=== PATIENT | male | born 1955 | race Caucasian/White ===

== ENCOUNTER → 2016-07-23 | Outpatient (CLI) | payer OTHER | LOC: FIMAGING 13:05 | PROVIDERS: ATTEND Family Medicine | DX: R07.89 Other chest pain (principal); J45.909 Unspecified asthma, uncomplicated; R91.8 Other nonspecific abnormal finding of lung field ==

== ENCOUNTER → 2016-07-25 | Outpatient (CLI) | payer OTHER | LOC: CIMAGING 10:16 | PROVIDERS: ATTEND Family Medicine | DX: R91.8 Other nonspecific abnormal finding of lung field (principal); M89.8X8 Other specified disorders of bone, other site; I25.10 Atherosclerotic heart disease of native coronary artery without angina pectoris ==

== ENCOUNTER 2017-02-28 14:55 | Emergency (ER) | payer OTHER ==
[2017-02-28 15:01] VITALS: TEMP 97.5
--- NOTE | 2017-02-28 15:23 | EDPHY ---
H & P Time Seen by Provider: 02/28/17 15:04 HPI/ROS: CHIEF COMPLAINT: Head injury HISTORY OF PRESENT ILLNESS: Patient is a 61-year-old male who presents emergency department after striking his head on ice. The patient was ice skating at approximately 1:30 a.m. when he fell back. He struck the back of his head. He did not lose consciousness. He had mild discomfort. He was able to get up and continue skating for the next 10-15 minutes. He then walked off the ice in up some stairs. He felt lightheaded. He got mildly diaphoretic. He had nausea with no vomiting. He laid down and his symptoms ultimately resolved. He states he feels mildly foggy. He has no focal neurologic deficit. No headache or neck pain at this time. He denies any chest pain, dizziness or weakness. The patient takes a baby aspirin daily. He did not take aspirin today. He is on no other blood thinners. REVIEW OF SYSTEMS: My complete review of systems is negative except as mentioned in the HPI. Past Medical/Surgical History: Past medical history: Negative Past surgical history: Negative Social history: The patient does not smoke. He did not drink alcohol today. No drug use. Smoking Status: Never smoked Physical Exam: Vitals noted GENERAL: Well-appearing, in no acute distress, alert. HEENT: PERRLA, normal pharynx, no signs of dehydration. TMs negative. No trauma. NECK: No thyromegaly, no lymphadenopathy, supple. Nexus negative. RESPIRATORY: Clear to auscultation bilaterally, no rales, rhonchi or wheezing. CVS: Regular rate and rhythm, no rubs, murmurs, or gallops. ABDOMEN: Soft, nontender, nondistended, no organomegaly. BACK: Normal to inspection, no CVA tenderness. SKIN: Normal color, no rash, warm, dry. No pallor. EXTREMITIES: No pedal edema, no calf tenderness, no Homans sign or cords, no joint swelling. NEURO/PSYCH: Higher functions: Alert and Oriented x3. Normal speech and cognition. Normal mood and affect. Cranial nerves: Normal as tested. Cerebellar: Normal as tested. Good finger to nose, good [id number], normal gait. Peripheral exam: [Normal motor exam. Normal sensation. Normal reflexes. Constitutional: Initial Vital Signs Temperature (C) 36.4 C 02/28/17 14:59 Heart Rate 68 02/28/17 14:59 Respiratory Rate 18 02/28/17 14:59 Blood Pressure 130/78 H 02/28/17 14:59 O2 Sat (%) 98 02/28/17 14:59 O2 Delivery Mode Room Air Allergies/Adverse Reactions: Penicillins Allergy (Verified 02/28/17 14:58) "shawn" Allergy (Uncoded 02/28/17 14:58) Home Medications: Medication Instructions Recorded NK [No Known Home Meds] 02/28/17 Medical Decision Making ED Course/Re-evaluation: In the emergency department I discussed possible etiologies with the patient. I discussed closed-head injury. I discussed diagnostic options including CT imaging. After thorough discussion an explanation, the patient does not want a head CT imaging at this time. I feel this is appropriate based on his presentation. Differential Diagnosis: My differential includes but is not limited to closed-head injury, concussion, subarachnoid hemorrhage, subdural hematoma, epidural hematoma, dysrhythmia, ACS , acute HI, spinal injury Departure - Departure Disposition: Home, Routine, Self-Care Clinical Impression: Closed head injury Qualifiers: Encounter type: initial encounter Qualified Code(s): S09.90XA - Unspecified injury of head, initial encounter Condition: Good Instructions: Head Injury (ED) Additional Instructions: Return with increasing headache, weakness, numbness, dizziness, chest pain, vomiting or any other concerns. Referrals: Edwin Pitt MD [Primary Care Provider] - 2-3 days, call for appt.
[2017-02-28 15:34] VITALS: BP 136/66; PULSE 67; RESP 16; O2SAT 92
== END 2017-02-28 15:30 | disposition home or self-care (01) ==
DX: S09.90XA Unspecified injury of head, initial encounter (principal); V00.211A Fall from ice-skates, initial encounter; Y99.8 Other external cause status; Y93.21 Activity, ice skating